=== PATIENT | female | born 1970 | race African-American/Black ===

== ENCOUNTER 2021-01-15 08:37 | Emergency (ER) | payer OTHER ==
[~2021-01-15 08:37] MED LIST: PRINIVIL10 MG PO
[2021-01-15 09:05] LABS: BASOPHIL 0.5 % (0-2); EOSINOPHIL 1.1 % (0-5); HGB 14.1 g/dl (12.5-16.0); LYMPHOCYTE 30.4 % (15-48); MCH 31.1 pg (25.0-31.0); MCHC 37.1 g/dL (32.0-36.0); MCV 83.7 fL (78.0-100.0); MPV 9.5 fL (6.0-9.5); NEUTROPHIL 62.6 % (41-80); NRBC 0; PLT 332 K/uL (150-400); RBC 4.54 M/uL (4.20-5.40); RDW 12.7 % (11.5-14.0); WBC 11.7 K/uL (4.0-10.5)
[2021-01-15 09:35] LABS: ALBUMIN 3.7 g/dL (3.4-5.0); BILIRUBIN - TOTAL 1.1 mg/dL (0.2-1.0); CREATININE 0.73 mg/dL (0.51-0.95); GLOBULIN (CALCULATION) 2.8 g/dL; POTASSIUM 3.5 mmol/L (3.5-5.1); TOTAL PROTEIN 6.5 g/dL (6.4-8.2)
[2021-01-15] MEDS ORDERED: ONDANSETRON ODT4 MG PO (09:53)
== END 2021-01-15 10:12 | disposition home or self-care (01) ==
LOC: FER 08:37
PROVIDERS: Emergency Medicine
DX: B34.9 Viral infection, unspecified (principal)
CPT/HCPCS: 36415; 80053; 84484; 85025; 93005

== ENCOUNTER → 2021-07-24 | Day surgery (SDC) | payer OTHER ==
[~2021-07-24] VITALS: Ht 165.1 cm; Wt 59.9 kg
[~2021-07-24] MED LIST changes: +CARAFATE1 GM PO; +NORVASC5 MG PO; +ONDANSETRON ODT4 MG PO; +PAXIL10 MG PO; +PROTONIX 40MG T40 MG PO; +VITAMIN D350 MC5 PO
[2021-07-24 09:59] LABS: HCG (URINE) SCREEN NEGATIVE (NEGATIVE)
== END | disposition home or self-care (01) ==
LOC: FAS 09:36
PROVIDERS: Student in an Organized Health Care Education/Training Program
DX: D12.2 Benign neoplasm of ascending colon (principal); D12.4 Benign neoplasm of descending colon; D12.3 Benign neoplasm of transverse colon; K63.5 Polyp of colon; K29.50 Unspecified chronic gastritis without bleeding; K20.90 Esophagitis, unspecified without bleeding; K64.8 Other hemorrhoids; K63.89 Other specified diseases of intestine; F41.9 Anxiety disorder, unspecified; I10 Essential (primary) hypertension; D57.3 Sickle-cell trait; R63.4 Abnormal weight loss; F17.210 Nicotine dependence, cigarettes, uncomplicated; Z79.899 Other long term (current) drug therapy
CPT/HCPCS: 84703; J1610; J2704; J7120